=== PATIENT | female | born 1950 | race Two or more races ===

== ENCOUNTER 2016-09-26 02:51 | Inpatient (IN) | payer MEDICAID, MEDICARE ==
[~2016-09-26] VITALS: Ht 157.5 cm; Wt 43.2 kg
[2016-09-26] VITALS (29 sets, daily range): BP systolic 86–160; BP diastolic 44–84
--- NOTE | 2016-09-26 03:05 | NUR ---
TO BED 6 A 66 YO FEMALE BIBRA FROM [facility] HERE FOR "HIGH BUN 90; K 6" UPON ARRIVAL TO ER, PATIENT IS ALERT, RESPONSIVE TO VERBAL AND TACTILE STIMULI, SINUS TACHY ON THE MONITOR AT 120'S, BP IS 96/61, NO SOB NOTED, BREATHING EVEN AND UNLABORED, SATTING AT 98-100% ON ROOM AIR. ONGOING CLOSE CARDIAC AND VS MONITORING. INITIATED COMFORT AND SAFETY MEASURES. DR CERDA TO AL.
--- NOTE | 2016-09-26 03:34 | NUR ---
started a saline lock on the lfa g20, blood drawn and sent to lab.
[2016-09-26 03:41] LABS: BASOPHILS % (AUTO) 0.3 % (0.0-2.0); EOSINOPHILS % (AUTO) 0.3 % (0.0-6.0); HEMATOCRIT 33 % (33-45); LYMPHOCYTES # (AUTO) 0.5 /CMM (0.8-4.8); LYMPHOCYTES % (AUTO) 3.6 % (20.0-44.0); MEAN CORPUSCULAR HEMOGLOBIN 33 PG (26.0-33.0); MEAN CORPUSCULAR HGB CONC 34 g/dl (31.0-36.0); MEAN CORPUSCULAR VOLUME 96 fL (82-100); MONOCYTES # (AUTO) 2.5 /CMM (0.1-1.30); MONOCYTES % (AUTO) 17.3 % (2.0-12.0); NEUTROPHILS # (AUTO) 11.3 /CMM (1.8-8.9); NEUTROPHILS % (AUTO) 78.5 % (43.0-81.0); PLATELET COUNT (AUTO) 253 /CMM (150-450); RDW COEFFICIENT OF VARIATION 15.6 (11.5-15.0); RED BLOOD CELL COUNT(AUTO) 3.37 MIL/uL (4.0-5.2); WHITE BLOOD COUNT (AUTO) 14.4 K/uL (4.3-11.0)
[2016-09-26] MEDS ORDERED: LORAZEPAM INJ 2 MG/ML VIAL ONE (03:44)
[2016-09-26] MEDS ORDERED: LORAZEPAM INJ 2 MG/ML VIAL IV ONE (04:00)
[2016-09-26 04:02] LABS: ALANINE AMINOTRANSFERASE 28 U/L (12-78); ALBUMIN 2.4 g/dL (3.4-5.0); ALKALINE PHOSPHATASE 202 U/L (46-116); ASPARTATE AMINOTRANSFERASE 26 U/L (15-37); BILIRUBIN,DIRECT 0.5 mg/dL (0.0-0.2); CARBON DIOXIDE 17 mmol/L (21-32); CHLORIDE 98 mmol/L (98-107); GLUCOSE 91 mg/dL (74-106); SODIUM SERUM 127 mmol/L (136-145); TOTAL PROTEIN, SERUM 7.5 g/dL (6.4-8.2)
[2016-09-26 04:03] LABS: TROPONIN I < 0.017 ng/mL (0.00-0.056)
[2016-09-26] MEDS ORDERED: ADENOSINE 6 MG/2 ML VIAL ONE ×3 (04:10→04:36)
[2016-09-26 04:11] LABS: INR 1.01 (0.87-1.13); PROTHROMBIN TIME 10.8 SECS (9.5-12.7)
--- NOTE | 2016-09-26 04:11 | NUR ---
PATIENT NOTED WITH INCREASED HR AT 160'S. DR CERDA NOTIFED, EKG DONE, RECORDED SVT, BP IS 144/60. RECEIVED ORDERS,NOTED AND CARRIED OUT.
[2016-09-26 04:15] LABS: POTASSIUM 6.6 mmol/L (3.5-5.1); UREA NITROGEN, BLOOD 119 mg/dL (7-18)
[2016-09-26] MEDS ORDERED: INSULIN REGULAR, HUMAN 100 UNIT/ML 10 ML VIAL ONE (04:17)
[2016-09-26] MEDS ORDERED: DEXTROSE 50%-WATER 50 ML DISP.SYRIN ONE (04:17)
[2016-09-26] MEDS ORDERED: CALCIUM CHLORIDE 1,000 MG/10 ML DISP.SYRIN ONE (04:18)
[2016-09-26] MEDS ORDERED: IV NS 0.9% 1,000 ML BAG IV ONE ×2 (04:30→06:00)
[2016-09-26] MEDS ORDERED: INSULIN REGULAR, HUMAN 100 UNIT/ML 10 ML VIAL IV ONE (04:30)
[2016-09-26] MEDS ORDERED: FUROSEMIDE 40 MG/4 ML VIAL IV ONE (04:30)
[2016-09-26] MEDS ORDERED: ALBUTEROL FS 2.5 MG/3 ML VIAL.NEB NEB ONE (04:30)
[2016-09-26] MEDS ORDERED: DEXTROSE 50%-WATER 50 ML DISP.SYRIN IV ONE (04:30)
[2016-09-26] MEDS ORDERED: CALCIUM CHLORIDE 1,000 MG/10 ML DISP.SYRIN IV ONE (04:30)
[2016-09-26] MEDS ORDERED: SODIUM BICARBONATE SYR 50 MEQ/50 ML DISP.SYRIN IV ONE (04:30)
[2016-09-26] MEDS ORDERED: ADENOSINE 6 MG/2 ML VIAL IVP ONE ×2 (04:30)
[2016-09-26] MEDS ORDERED: ALBUTEROL FS 2.5 MG/3 ML VIAL.NEB ONE (04:32)
--- NOTE | 2016-09-26 04:40 | NUR ---
MEDICATED PATIENT PER DR CERDA AT BEDSIDE, PLACED PATIENT ON PADS, EKG AT BEDSIDE, CLOSE CARDIAC AND VS MONITORING ONGOING. PATIENT IS RESPONSIVE TO TACTILE STIMULI.
[2016-09-26] MEDS ORDERED: AMIODARONE 150 MG/3 ML VIAL IV ONE ×4 (04:43→05:00)
--- NOTE | 2016-09-26 05:02 | NUR ---
AMIODARONE LOADING DONE COMPLETED, STARTED AMIO DRIP AT THIS TIME AT 1MG/MIN AND WILL TITRATE PER PROTOCOL.
--- NOTE | 2016-09-26 05:10 | NUR ---
dr ellison paged per dr mariscal.
[2016-09-26] MEDS ORDERED: FUROSEMIDE 20 MG/2 ML VIAL ONE (05:22)
[2016-09-26 05:29] LABS: BAND % (MANUAL) 1 % (0.0-5.0); LYMPHOCYTES % (MANUAL) 4 % (16-48); MONOCYTES % (MANUAL) 3 % (0-11.0); NEUTROPHILS % (MANUAL) 92 (42-76)
[2016-09-26] MEDS ORDERED: NA P133E RC (05:36)
[2016-09-26] MEDS ORDERED: HYDR-552 PO (05:36)
[2016-09-26] MEDS ORDERED: CYCL5TAB PO (05:36)
[2016-09-26] MEDS ORDERED: MIRT15TA PO (05:36)
[2016-09-26] MEDS ORDERED: MEGE400O PO (05:36)
[2016-09-26] MEDS ORDERED: BUSP10TA3 PO (05:36)
[2016-09-26] MEDS ORDERED: MONT10TA22 PO (05:36)
[2016-09-26] MEDS ORDERED: BISA-79 PO (05:36)
[2016-09-26] MEDS ORDERED: ASCO500C16 PO (05:36)
[2016-09-26] MEDS ORDERED: FERR-58 PO (05:36)
[2016-09-26] MEDS ORDERED: OMEG300C3 PO (05:36)
[2016-09-26] MEDS ORDERED: MAGN400O4 PO (05:36)
[2016-09-26] MEDS ORDERED: FOLI1TAB16 PO (05:36)
[2016-09-26] MEDS ORDERED: ACET-868 PO (05:36)
--- NOTE | 2016-09-26 05:45 | NUR ---
STARTED A SALINE LOCK ON THE MID ABDOMEN G22, GOOD BLOOD BACK FLOW NOTED, FLUSHED WITH EASE.
--- NOTE | 2016-09-26 06:10 | NUR ---
Report given to Tommy JAQUEZ for marni.
--- NOTE | 2016-09-26 06:25 | NUR ---
Transferred to ICU 252 via als protocol, no incident noted. Tommy JAQUEZ at bedside.
--- NOTE | 2016-09-26 06:30 | NUR ---
FELTING MACHINE OPERATOR HELPER; ADMISSION NOTE: RECEIVED PT FROM ER AT 0620, ADMITTED UNDER DR GRAYSON, DX SEPSIS, UT AND SVT, PT IS AAO X 1-2, CONFUSED, ON 2L NASAL CANNULA SATURATING 96%, RUNNING AMIODARONE DRIP AT 1 MG/MIN STARTED BY ER NURSE/NO AT 0500 AM. NS 2ND BOLUS ONGOING. PAGED DR GRAYSON FOR ADMISSION ORDERS. ALL ADMISSION ASSESSMENT DONE, DEEP REDNESS ON SACRUM/COCCYX, BILATERAL HEELS REDNESS. WOUND ACRE CONSULT TRIGGED. KCI MATTRESS ORDERED. WILL ENDORSE CARE TO NEXT SHIFT.
[2016-09-26] MEDS ORDERED: IV D5/ 0.9% NACL 1,000 ML IV PRN (07:00)
--- NOTE | 2016-09-26 07:17 | NUR ---
AREA COORDINATOR: SPOKE WITH DR GRAYSON, ADMISSION ORDERS RECEIVED, ADMITTED IN ICU, PLAN FOR CHEM 7 AND LACTIC ACID LEVEL WILL BE AT 0800 AM,. MD SAID WILL BE COMING IN 30 MINT. BEDSIDE REPORT GIVEN TO JOB/RN, MADE AWARE ALL ORDERS, ENDORSED ABOUT [facility] TO DOSE, AND D5NS AT 100 ML/HR.
[2016-09-26] MEDS: AMIODARONE 900 MG in IV D5W 482 ML IV PRN ×2 (08:13→15:29)
[2016-09-26] MEDS: PIPERACILLIN /TAZOBACTAM 2.25 G in IV D5W 50 ML IV SCH ×3 (08:14→17:44)
--- NOTE | 2016-09-26 09:00 | NUR ---
DR. MCNULTY ON THE UNIT TO DANNY PT. REPORTED NEWEST POTASSIUM LEVEL AT 5.5, HE ORDERS TO HAVE FOLLOW UP BMP AT 1300 NO OTHER INTERVENTIONS AT THIS TIME, PLACES THE ORDER IN [employer] HIMSELF. ALSO DISCUSSED WITH HIM, WHETHER TO START DIET OR NOT. HE ORDERS THAT WE CAN ADVANCE MUCH SHE CAN TOLERATE LONG SHE IS AWAKE. AT THIS TIME SHE IS DROWSY AND IT IS OKAY TO HOLD PO MEDICATIONS UNTIL SHE IS MORE ALERT.
[2016-09-26 09:18] LABS: ALBUMIN 1.9 g/dL (3.4-5.0); BILIRUBIN,TOTAL 1.1 mg/dL (0.2-1.0); CALCIUM, SERUM 9.2 mg/dL (8.5-10.1); CREATININE 2.8 mg/dL (0.6-1.3); POTASSIUM 5.5 mmol/L (3.5-5.1); TOTAL PROTEIN, SERUM 6.2 g/dL (6.4-8.2)
[2016-09-26 10:43] LABS: URINE TOTAL PROTEIN 125.4 mg/dL (0-11.9)
[2016-09-26] MEDS: IV NS 0.9% 1,000 ML IV PRN ×2 (10:49→23:33)
[2016-09-26 11:03] LABS: APPEARANCE,URINE CLOUDY (CLEAR); BILIRUBIN,URINE NEGATIVE (NEGATIVE); BLOOD, URINE 2+ Ery/uL (NEGATIVE); COLOR,URINE YELLOW (YELLOW); KETONES,URINE NEGATIVE (NEGATIVE); LEUKOCYTE ESTERASE ,URINE 3+ (NEGATIVE); NITRITE, URINE NEGATIVE (NEGATIVE); PROTEIN,URINE 1+ mg/dl (NEGATIVE); UGLUCOSE NEGATIVE (NEGATIVE); UROBILINOGEN,URINE 0.2 EU/dL (0.2)
[2016-09-26 11:06] LABS: BACTERIA,URINE Few /HPF (None Seen); SQUAMOUS EPITHELIAL CELL,UR Few /HPF (None Seen); WBC,URINE TOO NUMEROUS TO COUN /HPF (0-3)
[2016-09-26] MEDS ORDERED: VITAMINS A AND D 56.7 GM TUBE TP PRN (11:30)
[2016-09-26 12:22] LABS: EOSINOPHIL,URINE None Seen
[2016-09-26] MEDS: BLOOD SUGAR DIAGNOSTIC 1 EACH STRIP IN SCH ×3 (12:27→21:08)
[2016-09-26] MEDS ORDERED: Z GUARD REMEDY 2 OZ OINT TP PRN (12:30)
--- NOTE | 2016-09-26 12:40 | NUR ---
WOUND CARE CONSULT: RONAL SCORE NOTED TO BE 11. ALL SKIN PROTECTION MEASURES IN PLACE AND DISCUSSED WITH NURSING STAFF. FIRST STEP MATTRESS ORDERED AND TO BE PLACED TODAY. PT TO BE TURNED AND REPOSITIONED EVERY 2 HRS PT CONDITION PERMITS, HEELS FLOATED. Z GUARD ORDERED. PT SEEN BY SURGICAL TEAM. DEFER TO SURGICAL TEAM FOR WOUND TREATMENT PLAN. WILL SEE PRN. IN AGREEMENT WITH PLAN OF CARE.
[2016-09-26 12:46] LABS: ALBUMIN 1.9 g/dL (3.4-5.0); BILIRUBIN,TOTAL 1.3 mg/dL (0.2-1.0); CALCIUM, SERUM 9.1 mg/dL (8.5-10.1); CREATININE 2.7 mg/dL (0.6-1.3)
--- NOTE | 2016-09-26 12:55 | NUR ---
DR. CAI ORDERS ULTRASOUND FOR ABDOMEN (INCLUDING KIDNEYS) ORDERS TO KEEP THE PT NPO FOR THIS PROCEDURE. AWARE OF [facility] LAB[facility], BUN TRENDING DOWN BUT STILL CRITICAL HIGH, POTASSIUM NOW TRENDED DOWN TO 5.0, PT MAKING URINE OVER 1 LITER SINCE 0700 THIS MORNING.
[2016-09-26] MEDS: Z GUARD REMEDY 2 OZ OINT TP SCH (12:57)
[2016-09-26] MEDS: MORPHINE SULFATE INJ 2 MG/ML DISP.SYRIN IV PRN ×2 (15:31→20:21)
[2016-09-26] MEDS: busPIRone 5 MG TABLET PO SCH (16:31)
--- NOTE | 2016-09-26 16:31 | NUR ---
CALLED [facility] AND SPOKE WITH THE CHARGE NURSE AT STATION 4 HE STATES THE PT WAS ON MECHANICAL SOFT DIET.
--- NOTE | 2016-09-26 19:58 | NUR ---
CREATIVE SERVICES INTERN: RECEIVED PT FROM DAY SHIFT, PT IS AAO X 1-2, VERY CONFUSED, AGITATING, HAVING OCCASIONALLY HALLUCINATION, ON PSYCHOTROPIC MEDS. ON 2 L NC SATURATING 98%, NOT IN DISTRESS. ON AMIODARONE DRIP AT 0.5 MG/MIN WILL BE DONE AROUND 0500 AM.SINUS RHYTHM ON MONITOR RATE OF 90-130. NS AT 100 ML/HR. NEWLY INSERTED MIDLINE ON LEFT UPPER ARM #20 WITH GOOD BLOOD RETURNS. FROST CATH TO GRAVITY. AFEBRILE, ONGOING MONITORING...
[2016-09-26] MEDS: FAMOTIDINE/PF INJ 20 MG/2 ML VIAL IV SCH (20:20)
[2016-09-26] MEDS: MONTELUKAST SODIUM (10MG) 10 MG TABLET PO SCH (21:08)
[2016-09-26] MEDS: MIRTAZAPINE 15 MG TABLET PO SCH (21:08)
[2016-09-26 21:57] LABS: CREATININE, URINE 17.2 MG/DL (30.0-125.0)
[2016-09-27] VITALS (28 sets, daily range): BP systolic 88–138; BP diastolic 51–86
[2016-09-27] MEDS: PIPERACILLIN /TAZOBACTAM 2.25 G in IV D5W 50 ML IV SCH ×4 (00:15→21:27)
[2016-09-27] MEDS: BLOOD SUGAR DIAGNOSTIC 1 EACH STRIP IN SCH ×6 (00:59→21:19)
[2016-09-27 04:58] LABS: BASOPHILS # (AUTO) 0.1 /CMM (0.0-0.2); BASOPHILS % (AUTO) 0.4 % (0.0-2.0); EOSINOPHILS # (AUTO) 0.2 /CMM (0.0-0.7); EOSINOPHILS % (AUTO) 1.3 % (0.0-6.0); HEMATOCRIT 27 % (33-45); HEMOGLOBIN 9.1 g/dL (11.5-14.8); LYMPHOCYTES # (AUTO) 0.7 /CMM (0.8-4.8); LYMPHOCYTES % (AUTO) 4.7 % (20.0-44.0); MEAN CORPUSCULAR HEMOGLOBIN 33 PG (26.0-33.0); MEAN CORPUSCULAR HGB CONC 34 g/dl (31.0-36.0); MEAN CORPUSCULAR VOLUME 97 fL (82-100); MONOCYTES # (AUTO) 0.6 /CMM (0.1-1.30); MONOCYTES % (AUTO) 4.3 % (2.0-12.0); NEUTROPHILS # (AUTO) 12.5 /CMM (1.8-8.9); NEUTROPHILS % (AUTO) 89.3 % (43.0-81.0); PLATELET COUNT (AUTO) 228 /CMM (150-450); RDW COEFFICIENT OF VARIATION 15.3 (11.5-15.0); RED BLOOD CELL COUNT(AUTO) 2.75 MIL/uL (4.0-5.2)
[2016-09-27 05:50] LABS: BILIRUBIN,TOTAL 1.3 mg/dL (0.2-1.0); CALCIUM, SERUM 8.8 mg/dL (8.5-10.1); CREATININE 2.3 mg/dL (0.6-1.3); MAGNESIUM 2.2 mg/dL (1.8-2.4); PHOSPHORUS 4.8 mg/dL (2.5-4.9); POTASSIUM 4.5 mmol/L (3.5-5.1); TOTAL PROTEIN, SERUM 6.5 g/dL (6.4-8.2)
[2016-09-27] MEDS ORDERED: SODIUM BICARBONATE SYR 50 MEQ/50 ML DISP.SYRIN IV ONE (08:24)
[2016-09-27] MEDS: busPIRone 5 MG TABLET PO SCH ×2 (08:46→16:18)
[2016-09-27] MEDS: FERROUS SULFATE (325 MG) 325 MG/TAB TABLET PO SCH (08:46)
[2016-09-27] MEDS: ASCORBIC ACID 500 MG TABLET PO SCH (08:46)
[2016-09-27] MEDS: FOLIC ACID 1 MG TABLET PO SCH (08:46)
[2016-09-27] MEDS: MEGESTROL ACETATE SUSP 400 MG/10 ML UDC PO SCH ×2 (08:46→16:17)
[2016-09-27] MEDS: FAMOTIDINE/PF INJ 20 MG/2 ML VIAL IV SCH ×2 (08:46→21:19)
[2016-09-27] MEDS: Z GUARD REMEDY 2 OZ OINT TP SCH (08:47)
[2016-09-27] MEDS ORDERED: Medication Not On Formulary EA (Omega-3 Fatty Acids (Fish Oil) 300 MG) PO SCH (09:00)
--- NOTE | 2016-09-27 09:15 | NUR ---
CV/CVN CV TSC SYSTEM OPERATOR- Pt from SNF. MRSA swab was not ordered/done. MRSA swab collected & sent to lab. Will continue to monitor.
[2016-09-27] MEDS: IV NS 0.9% 1,000 ML IV PRN ×2 (09:17→21:20)
[2016-09-27] MEDS: AMIODARONE HCL 200 MG TABLET PO SCH (09:23)
--- NOTE | 2016-09-27 17:35 | NUR ---
ETL BI DEVELOPER- Report given to Ami JAQUEZ. 1750- Pt transferred to Tele Room 325-1. No belongings present on admission.
--- NOTE | 2016-09-27 18:00 | NUR ---
MS RN NOTES RECEIVED PATIENT IN BED RESTING NO SOB OR ACUTE DISTRESS NOTED. PATIENT ALERT, ORIENTED X1 CONFUSED. MALDIVIAN SPEAKING. VS WNL. BED IN LOW LOCKED POSITION. CALL LIGHT WITHIN REACH WILL CONTINUE TO MONITOR.
--- NOTE | 2016-09-27 19:15 | NUR ---
MS RN NOTES PATIENT IN BED RESTING NO SOB OR ACUTE DISTRESS NOTED. ALL DUE MEDICATIONS ADMINISTERED. ALL NEEDS MET. WILL ENDORSE TO PM SHIFT KEN.
--- NOTE | 2016-09-27 19:30 | NUR ---
NO BAKE MOLDER OPENING NOTES: PATIENT IN BED, AOX1, CONFUSED. ON ROOM AIR, BREATHING EVEN AND UNLABORED. BREATH SOUNDS CLEAR TO AUSCULTATION. APPEARS CALM AND IN NO DISTRESS. ARMANDO MIDLINE INTACT, INFUSING WELL WITH NS RUNNING AT 100 ML/HR. ON COREEN ISOFLEX MATTRESS. HOB MAINTAINED ELEVATED. PROVIDED FOR COMFORT AND SAFETY. BED IN LOWEST AND LOCKED POSITION, SIDERAILS UP X3. WILL CONT TO MONITOR.
[2016-09-27] MEDS: MIRTAZAPINE 15 MG TABLET PO SCH (21:53)
[2016-09-27] MEDS: MONTELUKAST SODIUM (10MG) 10 MG TABLET PO SCH (21:53)
[2016-09-28] VITALS (10 sets, daily range): BP systolic 110–153; BP diastolic 70–78
[2016-09-28] MEDS: BLOOD SUGAR DIAGNOSTIC 1 EACH STRIP IN SCH ×6 (00:55→21:10)
--- NOTE | 2016-09-28 01:00 | NUR ---
RN NOTES: PATIENT'S BLOOD SUGAR IS 79. GAVE SNACK OF PUDDING AND ORANGE JUICE. PATIENT ABLE TO TOLERATE SNACK. ON ASPIRATION PRECAUTIONS.
[2016-09-28] MEDS: PIPERACILLIN /TAZOBACTAM 2.25 G in IV D5W 50 ML IV SCH ×2 (05:03→12:37)
--- NOTE | 2016-09-28 05:09 | NUR ---
RN NOTES: PATIENT'S BLOOD SUGAR IS 89 MG/DL, NO INSULIN COVERAGE INDICATED AT THIS TIME.
--- NOTE | 2016-09-28 06:43 | NUR ---
GANG PUSHER CLOSING NOTES: PATIENT IN BED, AOX1, CONFUSED, ON ROOM AIR, BREATHING EVEN AND UNLABORED. BREATH OSUNDS CLEAR TO AUSCULTATION. ON TELE MONITORING WITH SINUS RHYTHM AT RATE OF 80S-90S THROUGH SHIFT. ARMANDO MIDLINE INTACT AND INFUSING WELL WITH NS RUNNING AT 100 ML/HR. DUE MEDS GIVEN. PROVIDED FOR COMFORT AND SAFETY. TURNED AND REPOSITIONED PATIENT IN BED. CONTINUED CURRENT WOUND TREATMENT. FROST CATHETER IN PLACE DRAINING CLEAR YELLOW URINE. NO ACUTE CHANGE IN CONDITION NOTED THROUGH SHIFT. PROVIDED FOR COMFORT AND SAFETY. BED IN LOWEST AND LOCKED POSITION, SIDERAILS UP X3. WILL ENDORSE TO AM RN FOR KEN.
[2016-09-28 06:45] LABS: CALCIUM, SERUM 8.6 mg/dL (8.5-10.1); CREATININE 1.7 mg/dL (0.6-1.3); MAGNESIUM 1.8 mg/dL (1.8-2.4); PHOSPHORUS 4.4 mg/dL (2.5-4.9); POTASSIUM 4.5 mmol/L (3.5-5.1)
--- NOTE | 2016-09-28 07:42 | NUR ---
MS/RN OPENING NOTE PATIENT RECEIVED IN BED IN STABLE CONDITION. NO SIGNS OF ACUTE DISTRESS. RESPIRATIONS EVEN AND UNLABORED, ON ROOM AIR. ALERT AND ORIENTED TIMES 1. DENIES PAIN OR DISCOMFORT AT THIS TIME. ALL NEEDS ATTENDED TO. CALL LIGHT IN REACH. WILL CONTINUE TO MONITOR TO ENSURE SAFETY.
[2016-09-28 07:44] LABS: BASOPHILS % (AUTO) 0.3 % (0.0-2.0); EOSINOPHILS # (AUTO) 0.2 /CMM (0.0-0.7); EOSINOPHILS % (AUTO) 1.8 % (0.0-6.0); HEMATOCRIT 29 % (33-45); HEMOGLOBIN 9.6 g/dL (11.5-14.8); LYMPHOCYTES # (AUTO) 0.9 /CMM (0.8-4.8); LYMPHOCYTES % (AUTO) 7.5 % (20.0-44.0); MEAN CORPUSCULAR HEMOGLOBIN 32 PG (26.0-33.0); MEAN CORPUSCULAR HGB CONC 33 g/dl (31.0-36.0); MEAN CORPUSCULAR VOLUME 99 fL (82-100); MONOCYTES # (AUTO) 0.4 /CMM (0.1-1.30); MONOCYTES % (AUTO) 3.7 % (2.0-12.0); NEUTROPHILS # (AUTO) 10.1 /CMM (1.8-8.9); NEUTROPHILS % (AUTO) 86.7 % (43.0-81.0); PLATELET COUNT (AUTO) 280 /CMM (150-450); RDW COEFFICIENT OF VARIATION 15.5 (11.5-15.0); RED BLOOD CELL COUNT(AUTO) 2.99 MIL/uL (4.0-5.2); WHITE BLOOD COUNT (AUTO) 11.6 K/uL (4.3-11.0)
[2016-09-28] MEDS: AMIODARONE HCL 200 MG TABLET PO SCH (08:45)
[2016-09-28] MEDS: FAMOTIDINE/PF INJ 20 MG/2 ML VIAL IV SCH ×2 (08:46→20:27)
[2016-09-28] MEDS: FERROUS SULFATE (325 MG) 325 MG/TAB TABLET PO SCH (08:46)
[2016-09-28] MEDS: FOLIC ACID 1 MG TABLET PO SCH (08:46)
[2016-09-28] MEDS: ASCORBIC ACID 500 MG TABLET PO SCH (08:46)
[2016-09-28] MEDS: busPIRone 5 MG TABLET PO SCH ×2 (08:46→17:34)
[2016-09-28] MEDS: IV NS 0.9% 1,000 ML IV PRN (09:08)
[2016-09-28] MEDS: Z GUARD REMEDY 2 OZ OINT TP SCH (09:17)
[2016-09-28] MEDS: MEGESTROL ACETATE SUSP 400 MG/10 ML UDC PO SCH ×2 (09:35→17:33)
[2016-09-28 12:15] LABS: ALBUMIN 2.1 g/dL (3.4-5.0); BILIRUBIN,DIRECT 0.4 mg/dL (0.0-0.2); BILIRUBIN,TOTAL 0.9 mg/dL (0.2-1.0); TOTAL PROTEIN, SERUM 6.8 g/dL (6.4-8.2)
[2016-09-28] MEDS ORDERED: METO25TA20 PO (14:48)
[2016-09-28] MEDS ORDERED: CEFA1PIG IV (14:48)
--- NOTE | 2016-09-28 15:24 | NUR ---
MS/RN SEEN BY CRISTIAN SEEN BY DR JUÁREZ STRUCTURAL STEEL WORKER HELPER WITH OK TO DISCHARGE
--- NOTE | 2016-09-28 15:45 | NUR ---
MS/RN S/B Marleen Vale Seen by RELIGIOUS EDUCATION TEACHER - patient ready to be discharged back to facility today. Needs to continue with with ancef IV for a further four days.
--- NOTE | 2016-09-28 16:00 | NUR ---
MS/RN F/C REMOVE F/C REMOVED. PATIENT TOLERATED WELL. MONITORING FOR PATIENT TO VOID SECONDARY TO S/P F/C REMOVAL.
--- NOTE | 2016-09-28 16:36 | NUR ---
MS/RN Report Report given to Flor at [facility].
--- NOTE | 2016-09-28 17:56 | NUR ---
MS/RN CLOSING NOTE PATIENT IN STABLE CONDITION. ABLE TO MAKE NEEDS KNOWN. S/P F/C REMOVAL MONITOR. STILL AWAITING FOR PATIENT TO VOID. AFTER VOID PATIENT WILL BE DISCHARGED TO [facility]. NO COMPLAIN OF PAIN AND DISCOMFORT. NO ACUTE DISTRESS. WILL CONTINUE TO MONITOR AND WILL ENDORSE TO ENTRY SPECIALISTS TO ENSURE SAFETY AND CONTINUITY OF CARE.
--- NOTE | 2016-09-28 19:30 | NUR ---
MSRN FULLY AWAKE, DIAPER DRY, NO URINE OUTPUT YET. NO NEEDS FOR NOW. TO CONTINUE,
[2016-09-28] MEDS: CEFAZOLIN 1 GM in IV D5W 50 ML IV SCH (20:26)
--- NOTE | 2016-09-28 20:44 | NUR ---
MSRN CHECKED FOR URINE OUTPUT, STATED SHE DID BUT HER DIAPER WAS DRY. NEED TO MONITOR CLOSELY IF PATIENT VOIDED. POSSIBLE DISCHARGE TONIGHT ONCE PATIENT VOIDS. BLADDER NON DISTENDED OF THIS TIME. DUE MEDS ADMINISTERED. ANCEF ON PROGRESS VIA LEFT UPPER ARM MIDLINE.REMAINS PLEASANTLY CONFUSED.
[2016-09-28] MEDS ORDERED: METOPROLOL TARTRATE 25 MG TABLET PO SCH (21:00)
[2016-09-28] MEDS: MIRTAZAPINE 15 MG TABLET PO SCH (21:10)
[2016-09-28] MEDS: MONTELUKAST SODIUM (10MG) 10 MG TABLET PO SCH (21:10)
--- NOTE | 2016-09-28 21:35 | NUR ---
MSRN BS WAS 126, NO COVERAGE. OTHER DUE MEDS ADMINISTERED.
--- NOTE | 2016-09-28 21:45 | NUR ---
MSRN VERBALIZES LOWER ABD PAIN, BLADDER DISTENDED, BLADDER SCAN REVEALS [address] CALL TO MD.
--- NOTE | 2016-09-28 21:50 | NUR ---
MSGISELE RECEIVED CALL FROM [facility], STATED CAN TAKE PATIENT IN THE MORNING INSTEAD, PER DENNISE. INFORMED PATIENT HAS URINARY RETENTION AND NEED TO CALL MD.
--- NOTE | 2016-09-28 22:10 | NUR ---
MSRNorma INFORMED RETORT ENGINEER GABY REGARDING URINARY RETENTION, ORDERS RECEIVED. WILL REPLACE FROST AND TO CALL [facility] IF THEY ACCEPT PATIENT WITH FROST, OTHERWISE OVERNIGHT STAY AND DISCHARGE PATIENT IN AM WITH FROST AND UROLOGY OUTPATIENT..
--- NOTE | 2016-09-28 22:15 | NUR ---
MSGISELE PLACED CALL TO [facility], WAS PLACED ON HOLD FOR AWHILE.
--- NOTE | 2016-09-28 22:20 | NUR ---
MSGISELE PLACED ANOTHER CALL TO [facility], SPOKE TO DENNISE, STATED THEY CAN ACCEPT PATIENT WITH FROST AND CAN TAKE PATIENT IN THE MORNING. INFORMED CN.
--- NOTE | 2016-09-28 23:00 | NUR ---
MSRN REINSERTED FROST FR 16 WITH GOOD CLEAR URINE BACKFLOW. OBTAINED 700 CC. REPOSITIONED FOR COMFORT.
[2016-09-29] MEDS: BLOOD SUGAR DIAGNOSTIC 1 EACH STRIP IN SCH ×2 (01:00→05:28)
[2016-09-29] MEDS: IV NS 0.9% 1,000 ML IV PRN (02:44)
--- NOTE | 2016-09-29 05:00 | NUR ---
MSRN PLACED CALL TO [facility], WILL CONCHE LOADER AND UNLOADER PATIENT AT 0730. PLACED CALL TO [facility] FOR REPORT, NO ANSWER.
--- NOTE | 2016-09-29 05:24 | NUR ---
MSRN PLACED ANOTHER CALL TO [facility], NO ANSWER.
[2016-09-29] MEDS: CEFAZOLIN 1 GM in IV D5W 50 ML IV SCH (05:28)
--- NOTE | 2016-09-29 05:51 | NUR ---
MSRN BED BATHED, DISIMPACTED HAD LARGE HARD STOOLS. FELT BETTER THIS TIME. TOTAL URINE OUTPUT WAS 1300 CLEAR YELLOW URINE. PLACED CALL TO [facility] STILL NOBODY ANSWERING.
--- NOTE | 2016-09-29 06:07 | NUR ---
MSRN RECEIVED CALL FROM [facility] WILL BE HERE IN 30 TO 45 MINS. PLACED 4TH CALL TO [facility] STILL NOBODY ANSWERING THE PHONE.
--- NOTE | 2016-09-29 06:14 | NUR ---
MSGISELE PLACED ANOTHER CALL TO [facility] SPOKE TO [facility] THIS TIME, GAVE UPDATE REPORT. PATIENT WILL BE DISCHARGE WITH FROST CATHETER AND LEFT UPPER ARM MIDLINE. PATIENT HAS NO BELONGINGS. AWAITING FOR AMBULANCE.
--- NOTE | 2016-09-29 06:56 | NUR ---
MSRN ADDITIONAL 550 OUT FROM [facility]. AMBULANCE ARRIVED. UPDATED REPORT.
--- NOTE | 2016-09-29 07:07 | NUR ---
MSRN LEFT VIA AMBULANCE TO [facility]. NO BELONGINGS. PATIENT IN SATISFACTORY CONDITION.
== END 2016-09-29 07:00 | DRG 470 ==
LOC: ER 02:53 → ICU 05:34 → MED 09-27 17:44 → TELE 09-27 22:24 → MED 09-28 10:50
PROVIDERS: ADMIT Internal Medicine Nephrology; ATTEND Internal Medicine Nephrology
PROC: 05H633Z Insertion of Infusion Device into Left Subclavian Vein, Percutaneous Approach (ICD-10-PCS; principal; 2016-09-26)
DX: I12.0 Hypertensive chronic kidney disease with stage 5 chronic kidney disease or end stage renal disease (principal); N17.0 Acute kidney failure with tubular necrosis; G93.41 Metabolic encephalopathy; L89.159 Pressure ulcer of sacral region, unspecified stage; E44.0 Moderate protein-calorie malnutrition; N18.6 End stage renal disease; F03.90 Unspecified dementia, unspecified severity, without behavioral disturbance, psychotic disturbance, mood disturbance, and anxiety; I47.1 Supraventricular tachycardia; E87.1 Hypo-osmolality and hyponatremia; I48.92 Unspecified atrial flutter; E87.5 Hyperkalemia; N39.0 Urinary tract infection, site not specified; F41.9 Anxiety disorder, unspecified; F32.9 Major depressive disorder, single episode, unspecified; D63.8 Anemia in other chronic diseases classified elsewhere; B96.20 Unspecified Escherichia coli [E. coli] as the cause of diseases classified elsewhere; E66.01 Morbid (severe) obesity due to excess calories; M06.9 Rheumatoid arthritis, unspecified; Z68.1 Body mass index [BMI] 19.9 or less, adult; L89.621 Pressure ulcer of left heel, stage 1; L89.611 Pressure ulcer of right heel, stage 1; D72.829 Elevated white blood cell count, unspecified
CPT/HCPCS: 36415; 71010-TC; 76700-TC; 80048-TC; 80053-TC; 80076-TC; 81000-TC; 82550-TC; 82570-TC; 82728-TC; 82962-TC; 83540-TC; 83605-TC; 83735-TC; 84100-TC; 84155-TC; 84300-TC; 84484-TC; 85025-TC; 85730-TC; 87081-TC; 87086-TC; 87186-TC; 93307-TC; A4606; C1769; J0153; J0282; J0690; J1815; J1940; J2060; J2270; J2543; J3490; J7030; J7042; J7060; Z7610

== ENCOUNTER 2016-12-10 17:52 | Inpatient (IN) | payer MEDICARE, MEDICAID ==
[~2016-12-10] VITALS: Ht 160 cm; Wt 42.8 kg
[~2016-12-10 17:52] MED LIST: ACET-868 PO; ASCO500C16 PO; BISA-79 PO; BUSP10TA3 PO; CEFA1PIG IV; CYCL5TAB PO; FERR-58 PO; FOLI1TAB16 PO; HYDR-552 PO; MAGN400O4 PO; MEGE400O PO; METO25TA20 PO; MIRT15TA PO; MONT10TA22 PO; NA P133E RC; OMEG300C3 PO
--- NOTE | 2016-12-10 17:54 | NUR ---
PT BIBRA FROM SNF TO ER BED 09. PER REPORT, PT IS MORE ALTERED AT 1600, PT NOTED TO BE DESATTING. ON NON REBREATHER STORAGE BRINE WORKER. GOWNED AND PLACED ON MONITOR. TACHYCARDIC STORAGE BRINE WORKER. AWAITING MD DELGADO.
--- NOTE | 2016-12-10 18:04 | NUR ---
DR SAVAGE AT BEDSIDE FOR EVAL.
[2016-12-10] MEDS ORDERED: IV NS 0.9% 1,000 ML BAG IV ONE (18:30)
--- NOTE | 2016-12-10 18:57 | NUR ---
RADIOLOGY AT BEDSIDE FOR CHEST XRAY.
--- NOTE | 2016-12-10 18:58 | NUR ---
PT TO RADIOLOGY FOR HEAD CT SCAN VIA [facility].
[2016-12-10] MEDS ORDERED: MULT-213 PO (19:05)
[2016-12-10 19:30] LABS: TROPONIN I 0.227 ng/mL (0.00-0.056)
[2016-12-10] MEDS ORDERED: LEVOFLOXACIN 750 MG /D5W 150ML 150 ML IV ONE ×2 (19:30→19:42)
[2016-12-10] MEDS ORDERED: VANCOMYCIN 1 GM in IV D5W 250 ML IV ONE (19:30)
[2016-12-10] MEDS ORDERED: CEFTRIAXONE 1GM BAG (ER ONLY) 50 ML IV ONE ×2 (19:30→19:41)
[2016-12-10 19:36] LABS: EOSINOPHILS # (AUTO) 0.1 /CMM (0.0-0.7); EOSINOPHILS % (AUTO) 0.2 % (0.0-6.0); HEMATOCRIT 26 % (33-45); HEMOGLOBIN 8.3 g/dL (11.5-14.8); LYMPHOCYTES # (AUTO) 1.6 /CMM (0.8-4.8); LYMPHOCYTES % (AUTO) 6.4 % (20.0-44.0); MEAN CORPUSCULAR HEMOGLOBIN 32 PG (26.0-33.0); MEAN CORPUSCULAR HGB CONC 32 g/dl (31.0-36.0); MEAN CORPUSCULAR VOLUME 100 fL (82-100); MONOCYTES # (AUTO) 0.3 /CMM (0.1-1.30); MONOCYTES % (AUTO) 1.3 % (2.0-12.0); NEUTROPHILS % (AUTO) 92.1 % (43.0-81.0); PLATELET COUNT (AUTO) 408 /CMM (150-450); RDW COEFFICIENT OF VARIATION 15.6 (11.5-15.0); RED BLOOD CELL COUNT(AUTO) 2.64 MIL/uL (4.0-5.2)
[2016-12-10 19:37] LABS: ALBUMIN 2.2 g/dL (3.4-5.0); BILIRUBIN,DIRECT 0.2 mg/dL (0.0-0.2); BILIRUBIN,TOTAL 0.5 mg/dL (0.2-1.0); CALCIUM, SERUM 11.8 mg/dL (8.5-10.1); CREATININE 2.7 mg/dL (0.6-1.3); POTASSIUM 4.2 mmol/L (3.5-5.1); TOTAL PROTEIN, SERUM 8.8 g/dL (6.4-8.2)
[2016-12-10] MEDS ORDERED: ASPIRIN 300 MG/SUPP.RECT RC ONE ×2 (20:00→20:20)
[2016-12-10 20:03] LABS: BAND % (MANUAL) 16 % (0.0-5.0); EOSINOPHILS % (MANUAL) 2 % (0-4); LYMPHOCYTES % (MANUAL) 8 % (16-48); NEUTROPHILS % (MANUAL) 74 (42-76)
--- NOTE | 2016-12-10 20:14 | NUR ---
CALLED [facility], SENIOR DESIGNER/ART DIRECTOR WAS PAGED.
[2016-12-10 20:19] LABS: INR 1.03 (0.87-1.13); PROTHROMBIN TIME 10.7 SECS (9.5-12.7)
[2016-12-10 20:27] LABS: APPEARANCE,URINE CLOUDY (CLEAR); BILIRUBIN,URINE NEGATIVE (NEGATIVE); BLOOD, URINE 3+ Ery/uL (NEGATIVE); COLOR,URINE YELLOW (YELLOW); KETONES,URINE NEGATIVE (NEGATIVE); LEUKOCYTE ESTERASE ,URINE 3+ (NEGATIVE); NITRITE, URINE POSITIVE (NEGATIVE); PROTEIN,URINE 2+ mg/dl (NEGATIVE); UGLUCOSE NEGATIVE (NEGATIVE)
[2016-12-10 20:38] LABS: BACTERIA,URINE Few /HPF (None Seen); SQUAMOUS EPITHELIAL CELL,UR Few /HPF (None Seen); WBC,URINE 21-50 /HPF (0-3)
--- NOTE | 2016-12-10 20:46 | NUR ---
CARLEE 119-1
--- NOTE | 2016-12-10 20:50 | NUR ---
SPOKE WITH DR. UNDERWOOD. WAS INFORMED TO SEND PT TO FLOOR SO HE CAN PLACE ORDERS.
[2016-12-10 21:00] VITALS: BP 96/43
--- NOTE | 2016-12-10 21:15 | NUR ---
RN:TELE: PT RECEIVED FROM ED FOR PNA. PT NOTED TO HAVE LABORED BREATHING AND O2 SAT 87% ON 3 LITERS NC. PT PLACED ON 10 LITERS SIMPLE MASK. STAT ABG ORDERED DUE TO RESPIRATORY DISTRESS. PER MD ORDERS CALLED RENAL MD FOR ADMITTING ORDERS. PER PT CHART PT IS FULL CODE.
[2016-12-10] MEDS ORDERED: methylPREDNISolone SOD SUCC 40 MG/ML VIAL ONE (21:32)
[2016-12-10] MEDS ORDERED: ALBUTEROL FS 2.5 MG/0.5 ML VIAL.NEB ONE (21:33)
[2016-12-10] MEDS ORDERED: IPRATROPIUM NEB FS 0.5 MG/2.5 ML AMPUL.NEB ONE (21:33)
[2016-12-10 21:40] VITALS: BP 73/36
[2016-12-10] MEDS ORDERED: ALBUTEROL FS 2.5 MG/3 ML VIAL.NEB ONE (21:40)
--- NOTE | 2016-12-10 21:40 | NUR ---
RN NOTES PATIENT WITH NEW ORDERS. MEDICATION OVERRIDE PERFORMED, NO PHARMACY AT THIS TIME. ALSO RECEIVED CALL FROM [facility] REGARDING SEVERE SEPSIS FOLLOW UP, SPOKE TO GILSON. PER GILSON 278 ML MORE OF FLUIDS NEED TO BE BOLUSED AND 2 BP READINGS AFTER THAT. PRIMARY NURSE MADE AWARE
[2016-12-10] MEDS: methylPREDNISolone SOD SUCC 125 MG/2ML VIAL IV SCH (21:42)
[2016-12-10] MEDS: IV D5/ 0.9% NACL 1,000 ML IV PRN (21:42)
[2016-12-10] MEDS: IPRATROPIUM NEB FS 0.5 MG/2.5 ML AMPUL.NEB NEB SCH (22:04)
[2016-12-10] MEDS: ALBUTEROL FS 2.5 MG/3 ML VIAL.NEB NEB SCH (22:04)
--- NOTE | 2016-12-10 22:05 | NUR ---
RN:TD: ABG RESULTS REPORTED TO MD. MD MADE AWARE OF CODE STATUS, BP 70'S AND POOR IV ACCESS. NEW ORDERS TO PLACE PT ON BIPAP, ADMIN 500 ML NS BOLUS. MD REQUESTED TO HAVE PT PLACED ON HCO3 GTT BUT PER NURSING LOGGING EQUIPMENT MECHANIC BICARB IS NOT AVAILABLE. ORDERS TO REPEAT ABG IN 1 HOUR AND CALL MD. WILL CONTINUE TO MONITOR CLOSELY.
--- NOTE | 2016-12-10 22:07 | NUR ---
pt placed on bipap per md order post abg results. pt placed on s/t 12 30/06 100% Addendum: 12/10/16 at 2208 by DERRELL DANIEL RT Amended: Links added.
[2016-12-10 22:13] VITALS: BP 81/51
[2016-12-10] MEDS ORDERED: IV NS 0.9% 500 ML IV ONE (22:30)
[2016-12-10 23:00] VITALS: BP 82/51
[2016-12-10 23:15] VITALS: BP 96/64
[2016-12-10 23:35] LABS: ABG BASE EXCESS -17.6 mmol/L; ABG OXYGEN SATURATION 93.3 % (92.0-98.5); ABG PCO2 57.8 mmHg (35.0-45.0); ABG PH 6.976 (7.350-7.450); ABG PO2 87.8 mmHg (75.0-100.0); AaDO2 276.4 mmHg; COHb 0.8 % (0.5-1.5); O2Hb 91.6 % (94.0-97.0); SITE, ABG Left Brachial; VENT MODE, BG 10L SIMPLE MASK
[2016-12-10 23:36] LABS: ABG BASE EXCESS -18.4 mmol/L; ABG OXYGEN SATURATION 98.6 % (92.0-98.5); ABG PCO2 52.5 mmHg (35.0-45.0); ABG PH 6.981 (7.350-7.450); ABG PO2 247.3 mmHg (75.0-100.0); AaDO2 413.2 mmHg; COHb 0.1 % (0.5-1.5); MetHb 1.1 % (0.0-1.5); O2Hb 97.4 % (94.0-97.0); PEEP,BG 5 cm H2O; SITE, ABG Right Brachial; VENT MODE, BG S/T 12 20/5 100%
--- NOTE | 2016-12-10 23:54 | NUR ---
RN:TD: ABG RESULTS AND BP READING 80'S. NEW ORDERS FOR PT TO BE TRANSFERRED TO ICU, WITH LEVO GTT. ONCOMING NURSE TO CALL PULMONARY REGARDING BIPAP CHANGES AND ABG RESULTS.
[2016-12-11] VITALS (102 sets, daily range): BP systolic 58–207; BP diastolic 14–173
--- NOTE | 2016-12-11 00:27 | NUR ---
RN:TD: PT TRANSFERRED TO ICU ROOM 258, BEDSIDE REPORT GIVEN. ERIN OWENS TO CALL PULMONARY FOR BIPAP MANAGEMENT. Addendum: 12/11/16 at 0033 by AMY WHITE RN MESSAGE LEFT FOR FAMILY REGARDING CHANGE IN PT CONDITION. PENDING RESPONSE.
--- NOTE | 2016-12-11 00:30 | NUR ---
ASSISTANT TEACHER PRIMARY - NOTES - RECEIVED PT IN BED, OPENS EYES, DOES NOT FOLLOW COMMANDS, ABLE TO MOVE BUE, BOTH HANDS ARE DEFORMED AND STUCK IN ONE POSITION, LOOKS LIKE CRIPPLING ARTHRITIS. PT IS ON BIPAP, 20/5 R 12 100%, ABG IS BAD, PH LOW 6.981, WILL NOTIFY PELEG FOR BIPAP SETTINGS. PT IS IN ST UP TO 120S, BP MARGINAL. PT IS NPO, PT HAS F/C WITH LOW URINE OUTPUT. SACRAL STAGE 2, LEFT HAND WOUND WITH WHITE PUS?. PT HAS 20G R EJ IV, ON D5NS @ 100 ML/HR. WILL CONTINUE TO MONITOR
[2016-12-11] MEDS ORDERED: IPRATROPIUM NEB FS 0.5 MG/2.5 ML AMPUL.NEB ONE ×2 (00:50→03:42)
[2016-12-11] MEDS ORDERED: ALBUTEROL FS 2.5 MG/3 ML VIAL.NEB ONE ×2 (00:50→03:43)
[2016-12-11] MEDS: ALBUTEROL FS 2.5 MG/3 ML VIAL.NEB NEB SCH ×7 (00:51→23:31)
[2016-12-11] MEDS: IPRATROPIUM NEB FS 0.5 MG/2.5 ML AMPUL.NEB NEB SCH ×7 (00:51→23:31)
--- NOTE | 2016-12-11 02:50 | NUR ---
rn:td: orders from md to give one amp of hco3 if available, per nursing tellers supervisor dana only bicarb is located in crash cart. per simone crash cart will be opening in icu to admin hco3. order placed.
[2016-12-11] MEDS ORDERED: SODIUM BICARBONATE SYR 50 MEQ/50 ML DISP.SYRIN IV ONE ×2 (03:00→03:20)
--- NOTE | 2016-12-11 03:10 | NUR ---
DR PEREIRA CALLED REGARDING CRITICAL ABG RESULTS, HE SAID THE PATIENT NEEDS TO BE INTUBATED, BUT THE PATIENT IS DNI, PT IS ON BIPAP, DR PEREIRA ORDERED BIPAP SETTING CHANGES
--- NOTE | 2016-12-11 03:23 | NUR ---
IPAP CHANGED TO 25, RATE TO [address] PEREIRA.
[2016-12-11 04:49] LABS: BASOPHILS # (AUTO) 0.1 /CMM (0.0-0.2); BASOPHILS % (AUTO) 0.2 % (0.0-2.0); HEMATOCRIT 28 % (33-45); HEMOGLOBIN 8.7 g/dL (11.5-14.8); LYMPHOCYTES # (AUTO) 0.9 /CMM (0.8-4.8); LYMPHOCYTES % (AUTO) 2.6 % (20.0-44.0); MEAN CORPUSCULAR HEMOGLOBIN 31 PG (26.0-33.0); MEAN CORPUSCULAR HGB CONC 31 g/dl (31.0-36.0); MEAN CORPUSCULAR VOLUME 101 fL (82-100); MONOCYTES # (AUTO) 0.3 /CMM (0.1-1.30); MONOCYTES % (AUTO) 0.8 % (2.0-12.0); NEUTROPHILS # (AUTO) 35.1 /CMM (1.8-8.9); NEUTROPHILS % (AUTO) 96.4 % (43.0-81.0); PLATELET COUNT (AUTO) 329 /CMM (150-450); RDW COEFFICIENT OF VARIATION 17.6 (11.5-15.0); RED BLOOD CELL COUNT(AUTO) 2.81 MIL/uL (4.0-5.2)
[2016-12-11 04:53] LABS: WHITE BLOOD COUNT (AUTO) 36.4 K/uL (4.3-11.0)
[2016-12-11 05:02] LABS: ALBUMIN 1.7 g/dL (3.4-5.0); BILIRUBIN,TOTAL 0.4 mg/dL (0.2-1.0); CALCIUM, SERUM 10.3 mg/dL (8.5-10.1); CREATININE 2.5 mg/dL (0.6-1.3); PHOSPHORUS 5.4 mg/dL (2.5-4.9); POTASSIUM 4.2 mmol/L (3.5-5.1); TOTAL PROTEIN, SERUM 7.5 g/dL (6.4-8.2)
[2016-12-11 05:12] LABS: BAND % (MANUAL) 20 % (0.0-5.0); LYMPHOCYTES % (MANUAL) 6 % (16-48); MONOCYTES % (MANUAL) 2 % (0-11.0); NEUTROPHILS % (MANUAL) 72 (42-76)
[2016-12-11] MEDS ORDERED: methylPREDNISolone SOD SUCC 125 MG/2ML VIAL ONE (06:07)
[2016-12-11] MEDS: methylPREDNISolone SOD SUCC 125 MG/2ML VIAL IV SCH ×3 (06:09→22:22)
--- NOTE | 2016-12-11 06:30 | NUR ---
FI02 LOWERED TO 80%
--- NOTE | 2016-12-11 07:10 | NUR ---
RN INITIAL NOTES RECEIVED PT AWAKE, NON-VERBAL. ON BIPAP. HOB ELEVATED. NO RESPIRATORY DISTRESS NOTED. NO SOB NOTED. NO SIGNS OF PAIN NOTED. IV LINE IN PLACE. ON IVF: D5NS AT 100ML/HR. FC IN PLACE. WILL MONITOR FOR OUTPUT. PT REPOSITIONED. BLE ELEVATED. WILL MONITOR.
[2016-12-11] MEDS: IV D5/ 0.9% NACL 1,000 ML IV PRN (07:21)
--- NOTE | 2016-12-11 08:40 | NUR ---
RN NOTES SEEN AND EXAMINED BY DR. PACHECO. AWARE OF PT'S STATUS, CURRENT LAB VALUES AND CXR RESULT. PT ON BIPAP. ON IVF. ORDERED LABS IN AM.
--- NOTE | 2016-12-11 09:00 | NUR ---
RN NOTES SEEN AND EXAMINED BY DR CAI. AWARE OF LAB VALUES: WBC 36.4, HGB 8.7, HCT 28, PLATELET 329. NO SIGNS OF ACTIVE BLEEDING NOTED. SODIUM 148, BUN 74, CREA 2.5. ALSO AWARE OF CXR RESULT. MD ORDERED LABS IN AM, STOOL FOR OB. NOTED AND CARRIED OUT. WILL CONTINUE TO MONITOR.
[2016-12-11] MEDS ORDERED: FEE PK DOSING 1 MIN EA MC ONE (09:23)
[2016-12-11 09:24] LABS: ABG BASE EXCESS -15.1 mmol/L; ABG OXYGEN SATURATION 98.7 % (92.0-98.5); ABG PCO2 30.4 mmHg (35.0-45.0); ABG PH 7.199 (7.350-7.450); ABG PO2 223.1 mmHg (75.0-100.0); AaDO2 315.4 mmHg; COHb 0.3 % (0.5-1.5); MetHb 1.2 % (0.0-1.5); O2Hb 97.2 % (94.0-97.0); SITE, ABG Right Brachial
--- NOTE | 2016-12-11 09:25 | NUR ---
RN NOTES SEEN AND EXAMINED BY DR. PEREIRA. AWARE OF PT'S STATUS, CURRENT LAB VALUES AND IMAGING RESULT. PT ON BIPAP. ABG DONE AND RESULT RELAYED TO HIM. NO CHANGES MADE.
[2016-12-11] MEDS: PANTOPRAZOLE 40 MG VIAL IV SCH (09:50)
--- NOTE | 2016-12-11 10:00 | NUR ---
RN NOTES CALLED BRENDA (DTR) # [phone] FOR TELEPHONE CONSENT FOR US GUIDED THORACENTESIS ORDERED BY DR. PEREIRA. LEFT A MESSAGE. AWAITING CALL BACK.
[2016-12-11 10:01] LABS: CHOLESTEROL 40 mg/dL (<200); LDL 15 mg/dL (0-99); THYROID STIMULATING HORMONE 1.456 uIU/mL (0.358-3.74); TRIGLYCERIDES 37 mg/dL (30-150)
[2016-12-11 10:04] LABS: HDL CHOLESTEROL < 10 mg/dL (40-60)
[2016-12-11 16:31] LABS: APPEARANCE,URINE CLOUDY (CLEAR); BILIRUBIN,URINE NEGATIVE (NEGATIVE); BLOOD, URINE 3+ Ery/uL (NEGATIVE); COLOR,URINE YELLOW (YELLOW); KETONES,URINE NEGATIVE (NEGATIVE); LEUKOCYTE ESTERASE ,URINE 3+ (NEGATIVE); NITRITE, URINE POSITIVE (NEGATIVE); PROTEIN,URINE 2+ mg/dl (NEGATIVE); UGLUCOSE NEGATIVE (NEGATIVE); UROBILINOGEN,URINE 0.2 EU/dL (0.2)
[2016-12-11 16:46] LABS: BACTERIA,URINE Few /HPF (None Seen); SQUAMOUS EPITHELIAL CELL,UR Few /HPF (None Seen); WBC,URINE 51-80 /HPF (0-3)
[2016-12-11 16:57] LABS: CREATININE, URINE 20.6 MG/DL (30.0-125.0)
--- NOTE | 2016-12-11 17:10 | NUR ---
RN NOTES CALLED DR. CAI REGARDING PT'S HR. HR BET 120-140S, SINUS TACHYCARDIA. PT ON NPO. SBP ON LOW 90S. MD ORDERED NS 500ML AT 50ML/HR X1. NOTED AND CARRIED OUT. WILL CLOSELY MONITOR.
[2016-12-11] MEDS ORDERED: IV NS 0.9% 500 ML IV ONE (17:30)
[2016-12-11 18:01] LABS: EOSINOPHIL,URINE None Seen
[2016-12-11] MEDS: NOREPINEPHRINE 8 MG in IV D5W 500 ML IV PRN (18:07)
--- NOTE | 2016-12-11 18:44 | NUR ---
RN CLOSING NOTES PT REMAINS ON BIPAP. NO RESPIRATORY DISTRESS NOTED. NO SOB NOTED. NO SIGNS OF PAIN NOTED. KEPT HOB ELEVATED. MIDLINE IN PLACE. NS AT 50ML/HR INFUSING. STARTED ON LEVO AT 1MCG/MIN. CURRENT SBP ON LOW 100S. FC IN PLACE. TX PROVIDED ORDERED. KEPT CLEAN AND DRY. REPOSITIONED Q2. KEPT BLE ELEVATED. WILL ENDORSE FOR CONTINUITY OF CARE.
[2016-12-11] MEDS ORDERED: CEFTRIAXONE 1 G in IV D5W 50 ML IV SCH (20:00)
[2016-12-11] MEDS: VANCOMYCIN 500 MG in IV D5W 100 ML IV SCH (20:11)
--- NOTE | 2016-12-11 20:30 | NUR ---
SYSTEMS ENG - ASSUMED PT. CARE FROM GRACIELA JAQUEZ. PT. IS NONVERBAL, OPENS EYES SPONT. PT. REMAINS ON BIPAP I:E: 25/5,RATE-18 & 80% FIO2. CRACKLES & RHONCHI AUSC. O2 SATS ARE WNL. HEART MONITOR SHOWS VERY LABILE SBP'S FROM 60'S TO 200'S SYS - TOLIC. PT.REMAINS ON LEVOPHED GTT. AT ONE MCG/MIN. PULSE/LOW 100'S TO TEENS. FROST CATH TO GRAVITY-OLIGURIC. ALL PULSES PALPABLE X 4 EXT. BUT WEAK. AFEBRILE. SACRAL STAGE II. ALL FINGERS AND TOES ARE SEVERLY DEFORMED. CONT. POC.
[2016-12-11] MEDS ORDERED: LEVOFLOXACIN 500 MG /D5W 100ML 500 MG in PREMIX 1 EA IV SCH (21:00)
[2016-12-12] VITALS (91 sets, daily range): BP systolic 65–174; BP diastolic 24–130
--- NOTE | 2016-12-12 | NUR ---
AUTO DISMANTLER - NO CHANGES FROM INITIAL ASSESSMENT. RT AT BS READJUSTING BIPAP MASK, PT.CAN PULL ON BIPAP TUBING & DIS - CONNECT AIR TUBING/W/LEFT HAND. PT. MOVES LUE, MORE THAN RT. MINIMAL UOP VIA FROST. LEVO REMAINS AT ONE MCG/MIN. CONT. POC.
[2016-12-12] MEDS: IPRATROPIUM NEB FS 0.5 MG/2.5 ML AMPUL.NEB NEB SCH ×6 (03:22→23:16)
[2016-12-12] MEDS: ALBUTEROL FS 2.5 MG/3 ML VIAL.NEB NEB SCH ×6 (03:23→23:16)
[2016-12-12 04:59] LABS: ALANINE AMINOTRANSFERASE 14 U/L (12-78); ALBUMIN 1.6 g/dL (3.4-5.0); ALKALINE PHOSPHATASE 98 U/L (46-116); ASPARTATE AMINOTRANSFERASE 27 U/L (15-37); BILIRUBIN,TOTAL 0.3 mg/dL (0.2-1.0); CALCIUM, SERUM 10.1 mg/dL (8.5-10.1); CARBON DIOXIDE 13 mmol/L (21-32); CREATININE 2.5 mg/dL (0.6-1.3); GLUCOSE 136 mg/dL (74-106); PHOSPHORUS 4.3 mg/dL (2.5-4.9); POTASSIUM 3.3 mmol/L (3.5-5.1); TOTAL PROTEIN, SERUM 6.4 g/dL (6.4-8.2); UREA NITROGEN, BLOOD 79 mg/dL (7-18)
[2016-12-12 05:05] LABS: TROPONIN I < 0.017 ng/mL (0.00-0.056)
[2016-12-12 05:32] LABS: CREATINE KINASE, TOTAL 99 U/L (26-192); FERRITIN 4267 ng/mL (8-388); PREALBUMIN 7.3 MG/DL (18.0-35.7)
[2016-12-12] MEDS: methylPREDNISolone SOD SUCC 125 MG/2ML VIAL IV SCH ×3 (05:52→21:31)
[2016-12-12 06:06] LABS: CHLORIDE 126 mmol/L (98-107); IRON, SERUM 17 ug/dl (50-175); SODIUM SERUM 156 mmol/L (136-145); TOTAL IRON BINDING CAPACITY 50 ug/dl (250-450)
[2016-12-12 07:27] LABS: HEMATOCRIT 22 % (33-45); LYMPHOCYTES # (AUTO) 0.8 /CMM (0.8-4.8); LYMPHOCYTES % (AUTO) 3.3 % (20.0-44.0); MEAN CORPUSCULAR HEMOGLOBIN 31 PG (26.0-33.0); MEAN CORPUSCULAR HGB CONC 32 g/dl (31.0-36.0); MEAN CORPUSCULAR VOLUME 99 fL (82-100); MONOCYTES # (AUTO) 0.2 /CMM (0.1-1.30); MONOCYTES % (AUTO) 0.9 % (2.0-12.0); NEUTROPHILS # (AUTO) 24.1 /CMM (1.8-8.9); NEUTROPHILS % (AUTO) 95.8 % (43.0-81.0); PLATELET COUNT (AUTO) 320 /CMM (150-450); RDW COEFFICIENT OF VARIATION 17.9 (11.5-15.0); RED BLOOD CELL COUNT(AUTO) 2.22 MIL/uL (4.0-5.2); WHITE BLOOD COUNT (AUTO) 25.1 K/uL (4.3-11.0)
--- NOTE | 2016-12-12 07:30 | NUR ---
CLAM SHOVEL OPERATOR RECEIVED PATIENT ASLEEP, LETHARGIC WHEN AWAKE ON CONTINOUS BIPAP WITH SATURATION OF BETWEEN 95-98 UNABLE TO CHECK ORIENTATION AFEBRILE BLOOD PRESSURE AT THE LOW SIE, MAINTAINED ON LEVOPHED AT 1 MCG MONITORED CLOSELY FROST CATHETER DRAINING TO YELLOWISH URINE OUTPUT SMALL IN AMOUNT
[2016-12-12 07:41] LABS: HEMOGLOBIN 6.9 g/dL (11.5-14.8)
[2016-12-12] MEDS: PANTOPRAZOLE 40 MG VIAL IV SCH (08:09)
[2016-12-12] MEDS: POTASSIUM CL. PREMIX PERIPHER. 50 ML IV SCH ×4 (08:27→11:22)
[2016-12-12 08:29] LABS: BAND % (MANUAL) 5 % (0.0-5.0); EOSINOPHILS % (MANUAL) 1 % (0-4); LYMPHOCYTES % (MANUAL) 4 % (16-48); MONOCYTES % (MANUAL) 2 % (0-11.0); NEUTROPHILS % (MANUAL) 88 (42-76)
--- NOTE | 2016-12-12 08:30 | NUR ---
ADDICTIONS COUNSELOR ASSISTANT SEEN AND EXAMINED BY DR. MUÑOZ WITH NEW ORDERED MADE AND CARRIED OUT 6.9 HGB RESULT WAS INFORMED TO SHE ORDERED TO TRANSFUSE 1 UNIT
[2016-12-12] MEDS ORDERED: ACETAMINOPHEN 650 MG/20.3 ML UDC NG PRN (09:00)
[2016-12-12] MEDS ORDERED: ONDANSETRON HCL/PF 4 MG/2 ML VIAL IV PRN (09:00)
[2016-12-12 09:05] LABS: ABG BASE EXCESS -14.7 mmol/L; ABG OXYGEN SATURATION 98.3 % (92.0-98.5); ABG PCO2 23.7 mmHg (35.0-45.0); ABG PH 7.275 (7.350-7.450); ABG PO2 178.1 mmHg (75.0-100.0); AaDO2 79.8 mmHg; COHb 0.3 % (0.5-1.5); MetHb 0.8 % (0.0-1.5); O2Hb 97.2 % (94.0-97.0); SITE, ABG Right Brachial
[2016-12-12] MEDS: IV 1/2NS 1000 ML 1,000 ML IV PRN (09:05)
--- NOTE | 2016-12-12 10:54 | NUR ---
WOUND CARE CONSULT WOUND CARE WILL DEFER TREATMENT OF SACRAL DTI IN EVOLUTION TO SURGICAL TEAM AT THIS TIME. PATIENT WITH RONAL AT 11. CONTINUE TURNING SCHED Q 2 HOURS AND BILATERAL HEEL FLOATING. PATIENT PRESENTS WITH SEVERELY DRY SKIN TO BILATERAL LOWER LEGS AND FEET. RECOMMEND VITAMIN A+D OINTMENT DAILY FOR MANAGEMENT OF DRY SKIN. RECOMMEND Z GUARD FOR SKIN/MOISTURE MANAGEMENT TO PERINEAL AND BUTTOCKS REGIONS. PATIENT CURRENT ON TRACI ISOFLEX LOW AIRLOSS MATTRESS. ALL SKIN MANAGEMENT DISCUSSED WITH NURSING AT THE BEDSIDE. PATIENT CURRENTLY ON BIPAP, RECOMMEND CONTINUED USE OF MEPILEX FOAM UNDER THE BIPAP MASK AND BRIDGE OF NOSE FOR PROTECTION DISCUSSED WITH RT AT THE BEDSIDE.
[2016-12-12] MEDS ORDERED: Z GUARD REMEDY 2 OZ OINT TP PRN (11:00)
[2016-12-12 11:15] LABS: HEMOGLOBIN 7.1 g/dL (11.5-14.8)
[2016-12-12] MEDS: Z GUARD REMEDY 2 OZ OINT TP SCH (13:00)
[2016-12-12] MEDS: VITAMINS A AND D 56.7 GM TUBE TP SCH (13:10)
[2016-12-12] MEDS: NOREPINEPHRINE 8 MG in IV D5W 500 ML IV PRN (17:04)
[2016-12-12] MEDS: MEROPENEM 500 MG in IV NS 0.9% 50 ML IV SCH (18:21)
--- NOTE | 2016-12-12 19:30 | NUR ---
GERONTOLOGY AIDE: RECEIVED PT AWAKE, ABLE TO FOLLOW SIMPLE COMMANDS AT TIMES. ON BIPAP MACHINE AND TOLERATING SETTINGS ORDERED. NO ACUTE DISTRESS. NO EVIDENCE OF DISCOMFORT. ST ON LAST TURNER. STILL OFF LEVOPHED. AFEBRILE. F/C PATENT AND INTACT DRAINING SMALL AMT. OF LINDSAY COLORED URINE. SAFETY PRECAUTION NOTED. WILL CONTINUE TO MONITOR.
--- NOTE | 2016-12-12 20:00 | NUR ---
ICU: F/C DRAINING LARGE AMT. OF CLOUDY PINK-TINGED URINE WHEN REPOSITIONED. WILL CONTINUE TO MONITOR.
[2016-12-12] MEDS: VANCOMYCIN 500 MG in IV D5W 100 ML IV SCH (20:46)
[2016-12-12] MEDS ORDERED: LEVOFLOXACIN 500 MG /D5W 100ML 500 MG in PREMIX 1 EA IV SCH (21:00)
[2016-12-13] VITALS (36 sets, daily range): BP systolic 81–148; BP diastolic 27–84
--- NOTE | 2016-12-13 00:30 | NUR ---
PAPER ROLL MACHINE OPERATOR: STILL OFF LEVOPHED. TOLERATING BIPAP SETTINGS ORDERED. NO ACUTE DISTRESS, NO EVIDENCE OF DISCOMFORT.
[2016-12-13] MEDS: IV 1/2NS 1000 ML 1,000 ML IV PRN ×2 (02:04→15:18)
[2016-12-13] MEDS: IPRATROPIUM NEB FS 0.5 MG/2.5 ML AMPUL.NEB NEB SCH ×6 (03:47→23:10)
[2016-12-13] MEDS: ALBUTEROL FS 2.5 MG/3 ML VIAL.NEB NEB SCH ×6 (03:47→23:10)
--- NOTE | 2016-12-13 04:30 | NUR ---
PULP PLANT SUPERVISOR: BED BATH GIVEN AND TOLERATED FAIRLY. STOOL SPECIMEN #1 FOR O.B. COLLECTED.
[2016-12-13 05:18] LABS: HEMATOCRIT 24 % (33-45); HEMOGLOBIN 7.9 g/dL (11.5-14.8); LYMPHOCYTES # (AUTO) 0.6 /CMM (0.8-4.8); LYMPHOCYTES % (AUTO) 2.2 % (20.0-44.0); MEAN CORPUSCULAR HEMOGLOBIN 31 PG (26.0-33.0); MEAN CORPUSCULAR HGB CONC 32 g/dl (31.0-36.0); MEAN CORPUSCULAR VOLUME 96 fL (82-100); MONOCYTES # (AUTO) 0.3 /CMM (0.1-1.30); NEUTROPHILS # (AUTO) 24.5 /CMM (1.8-8.9); NEUTROPHILS % (AUTO) 96.8 % (43.0-81.0); PLATELET COUNT (AUTO) 236 /CMM (150-450); RDW COEFFICIENT OF VARIATION 18.7 (11.5-15.0); RED BLOOD CELL COUNT(AUTO) 2.55 MIL/uL (4.0-5.2); WHITE BLOOD COUNT (AUTO) 25.4 K/uL (4.3-11.0)
[2016-12-13 05:26] LABS: CREATININE 2.8 mg/dL (0.6-1.3); MAGNESIUM 2.1 mg/dL (1.8-2.4); PHOSPHORUS 5.4 mg/dL (2.5-4.9); POTASSIUM 4.4 mmol/L (3.5-5.1)
[2016-12-13] MEDS: methylPREDNISolone SOD SUCC 125 MG/2ML VIAL IV SCH ×3 (05:32→22:15)
[2016-12-13] MEDS: MEROPENEM 500 MG in IV NS 0.9% 50 ML IV SCH ×2 (05:34→17:35)
[2016-12-13 05:40] LABS: BAND % (MANUAL) 5 % (0.0-5.0); LYMPHOCYTES % (MANUAL) 4 % (16-48); MONOCYTES % (MANUAL) 2 % (0-11.0); NEUTROPHILS % (MANUAL) 89 (42-76)
--- NOTE | 2016-12-13 05:52 | NUR ---
SHADING PAINTER: RECEIVED LAB RESULT [id number] FROM 126 AND [id number] FROM 79. NO SIGNIFICANT KEN DURING THE SHIFT. TOLERATING BIPAP SETTINGS ORDERED WT NO ACUTE DISTRESS. STILL OFF LEVOPHED. REMAINED ST WT HR IN THE 120s. AFEBRILE. TOLERATING IVF WT NO S/S OF INFILTRATION ON JEREMY MIDLINE. F/C REMAINED PATENT, INTACT AND DRAINING WELL WHEN REPOSITIONED ON THE SIDE WITH CLOUDY LINDSAY TO PINK-TINGED URINE. WILL ENDORSE TO DAY SHIFT TO FF-UP WT MD FOR ABNORMAL LAB RESULTS. OLIVER CHARGE NURSE MADE AWARE.
--- NOTE | 2016-12-13 08:10 | NUR ---
INITIAL MOBILE PATROL OFFICER NOTE RCVD PT SLEEPING SHOWING NO S/O DISTRESS/PAIN AT THIS TIME, TOLERATING BIPAP WELL. ST ON TELE. FROST DRAINING CLOUDY, PINK TINGED URINE WITH CLOTS, IV ACCESSES C/D/I/PATENT. NO S/O INFILTRATION/PHLEBITIS OBSERVED UPON FLUSHING. IVF INFUSING. WILL CONTINUE TO MONITOR PT FOR SAFETY AND COMFORT. CALL LIGHT WITHIN REACH. BED IN LOW AND LOCKED POSITION.
[2016-12-13] MEDS: VITAMINS A AND D 56.7 GM TUBE TP SCH (08:17)
[2016-12-13] MEDS: Z GUARD REMEDY 2 OZ OINT TP SCH (08:17)
[2016-12-13] MEDS: PANTOPRAZOLE 40 MG VIAL IV SCH (08:18)
[2016-12-13 09:05] LABS: ABG BASE EXCESS -17.4 mmol/L; ABG OXYGEN SATURATION 97.8 % (92.0-98.5); ABG PCO2 19.4 mmHg (35.0-45.0); ABG PH 7.242 (7.350-7.450); ABG PO2 146.8 mmHg (75.0-100.0); AaDO2 116.1 mmHg; COHb 0.3 % (0.5-1.5); MetHb 1.2 % (0.0-1.5); O2Hb 96.3 % (94.0-97.0); SITE, ABG Right Radial
--- NOTE | 2016-12-13 09:20 | NUR ---
CONTRACTING OFFICER NOTE DR. PEREIRA IN UNIT INFORMED OF PT'S BLOOD GAS RESULTS, AGREES WITH RT TO DECREASE FIO2 TO 30%. WILL CONTINUE TO MONITOR.
--- NOTE | 2016-12-13 09:35 | NUR ---
DRENCHER NOTE PER DR. PEREIRA TRIAL OFF BIPAP. RT CALLED IN BIPAP OFF. PT ON 4L VIA NC. VITAL SIGNS REMAIN STABLE. ABG TO BE RE-ASSESSED IN ONE HR. WILL CONTINUE TO MONITOR.
[2016-12-13 10:53] LABS: ABG BASE EXCESS -17.9 mmol/L; ABG OXYGEN SATURATION 97.6 % (92.0-98.5); ABG PCO2 18.8 mmHg (35.0-45.0); ABG PH 7.233 (7.350-7.450); ABG PO2 138.3 mmHg (75.0-100.0); AaDO2 96.6 mmHg; COHb 0.2 % (0.5-1.5); MetHb 1.1 % (0.0-1.5); O2Hb 96.3 % (94.0-97.0); SITE, ABG Right Radial; VENT MODE, BG 4L NC
--- NOTE | 2016-12-13 11:03 | NUR ---
COMMUNICATION EQUIPMENT MECHANIC NOTE 1030 ABG DONE AND REVIEWED BY DR. PEREIRA. RECOMMENDS TO CONTINUE OFF BIPAP AND REPEAT ABG AT 1400. RT INFORMED. WILL CONTINUE TO MONITOR. VITAL SIGNS REMAIN STABLE. PT SHOWING NO S/O DISTRESS.
[2016-12-13 11:11] LABS: *SPE A/G RATIO 0.6 (0.7-1.7); *SPE ALPHA-1-GLOBULIN 0.4 g/dL (0.0-0.4); *SPE ALPHA-2-GLOBULIN 0.9 g/dL (0.4-1.0); *SPE BETA GLOBULIN 0.6 g/dL (0.7-1.3); *SPE GLOBULIN, TOTAL 3.5 g/dL (2.2-3.9); *SPE M-SPIKE Not Observed g/dL (Not Observed); *SPE PROTEIN TOTAL 5.5 g/dL (6.0-8.5); *SPEGAMMA GLOBULIN 1.6 g/dL (0.4-1.8)
--- NOTE | 2016-12-13 12:11 | NUR ---
NAVY SEAL NOTE DR. MUÑOZ IN UNIT AWARE OF PT'S MORNING LABS AND WORSENING OF RENAL FUNCTION, RECOMMENDED TO POSSIBLY CHANGE IVF OR INCREASE THEM. INFORMED THAT PT HAS BEEN NPO SINCE ADMISSION RECOMMENDED SWALLOW EVAL CONSULT, THIS WAS ORDERED. SHE WAS ALSO INFORMED OF PT'S ABG RESULTS METABOLIC ACIDOSIS. NO NEW ORDERS RCVD.
[2016-12-13 12:16] LABS: PTH, INTACT 21 pg/mL (15-65)
[2016-12-13 14:19] LABS: ABG BASE EXCESS -17.4 mmol/L; ABG OXYGEN SATURATION 96.9 % (92.0-98.5); ABG PCO2 20.2 mmHg (35.0-45.0); ABG PH 7.233 (7.350-7.450); ABG PO2 106.8 mmHg (75.0-100.0); COHb 0.3 % (0.5-1.5); MetHb 1.1 % (0.0-1.5); O2Hb 95.5 % (94.0-97.0); SITE, ABG Right Radial; VENT MODE, BG NASAL CANNULA
--- NOTE | 2016-12-13 14:19 | NUR ---
GYMNASTIC COACH NOTE 1400 ABG DONE AND RESULTS REVIEWED BY DR. PEREIRA. PT REMAINS STABLE WILL CONTINUE WITH O2 VIA NC. PT TOLERATING WELL AT THIS TIME. WILL CONTINUE TO MONITOR.
--- NOTE | 2016-12-13 18:00 | NUR ---
DOCUMENT CLERK NOTE PT REMAINS STABLE, SHOWING NO S/O DISTRESS OR PAIN OBSERVED. PT RESPONDS TO NAME, PT HAS BEEN ORIENTED TO PLACE, SITUATION, TIME THROUGHOUT THE SHIFT. TOLERATING O2 VIA NC. ST ON TELE. FROST TO GRAVITY DRAINING CLOUDY, YELLOW URINE. IV ACCESSES REMAIN C/D/I/PATENT. NO S/O INFILTRATION/PHLEBITIS OBSERVED UPON FLUSHING. PT'S CARE WILL BE ENDORSED TO SENIOR PRODUCTION MANAGER RN FOR CONTINUITY OF CARE AT CHANGE OF SHIFT. BED IN LOW AND LOCKED POSITION. CALL LIGHT WITHIN REACH.
[2016-12-13] MEDS: VANCOMYCIN 500 MG in IV D5W 100 ML IV SCH (20:36)
--- NOTE | 2016-12-13 21:00 | NUR ---
CALL CENTER SPECIALIST - REC'D REPORT FROM ANSHUL RN. REC'D PT. ALREADY ON RESCUE BIPAP. I:E-05/07, RATE 18 & 30%. PT. IS DNI STATUS. FROST CATH TO GRAVITY. VSS, EXCEPT PT. HAS CONSTANT ST/TEENS TO 120'S. RUE MIDLINE & RIJ 20G-PIV HAVE ALL PORTS PATENT TO FLUSH. 0.45 % NS INFUSING AT 100CC/HR VIA WIGGINS PUMP. PT'S HANDS & FEET ARE DEFORMED DUE TO SEVERE ARTHRITIS. PT.IS NPO. SACRAL WOUND HAS MEPILEX INTACT. CONT. POC.
[2016-12-14] VITALS (18 sets, daily range): BP systolic 94–141; BP diastolic 49–87
--- NOTE | 2016-12-14 02:00 | NUR ---
STAGING TECHNICIAN - COMPLETE BEDBATH ADM. W/ORAL,YVROSE & WOUND/SKIN CARE GIVEN. CONT. POC.
[2016-12-14] MEDS: ALBUTEROL FS 2.5 MG/3 ML VIAL.NEB NEB SCH ×2 (03:49→07:49)
[2016-12-14] MEDS: IPRATROPIUM NEB FS 0.5 MG/2.5 ML AMPUL.NEB NEB SCH ×2 (03:49→07:49)
[2016-12-14] MEDS: IV 1/2NS 1000 ML 1,000 ML IV PRN (03:53)
[2016-12-14 04:43] LABS: HEMATOCRIT 25 % (33-45); HEMOGLOBIN 8.2 g/dL (11.5-14.8); LYMPHOCYTES # (AUTO) 0.6 /CMM (0.8-4.8); LYMPHOCYTES % (AUTO) 2.9 % (20.0-44.0); MEAN CORPUSCULAR HEMOGLOBIN 31 PG (26.0-33.0); MEAN CORPUSCULAR HGB CONC 33 g/dl (31.0-36.0); MEAN CORPUSCULAR VOLUME 95 fL (82-100); MONOCYTES # (AUTO) 0.1 /CMM (0.1-1.30); MONOCYTES % (AUTO) 0.7 % (2.0-12.0); NEUTROPHILS # (AUTO) 19.7 /CMM (1.8-8.9); NEUTROPHILS % (AUTO) 96.4 % (43.0-81.0); PLATELET COUNT (AUTO) 202 /CMM (150-450); RDW COEFFICIENT OF VARIATION 19.9 (11.5-15.0); RED BLOOD CELL COUNT(AUTO) 2.64 MIL/uL (4.0-5.2); WHITE BLOOD COUNT (AUTO) 20.4 K/uL (4.3-11.0)
[2016-12-14 04:58] LABS: CALCIUM, SERUM 9.9 mg/dL (8.5-10.1); CREATININE 2.7 mg/dL (0.6-1.3); MAGNESIUM 2.1 mg/dL (1.8-2.4); PHOSPHORUS 5.7 mg/dL (2.5-4.9); POTASSIUM 3.8 mmol/L (3.5-5.1)
[2016-12-14 05:14] LABS: BAND % (MANUAL) 7 % (0.0-5.0); LYMPHOCYTES % (MANUAL) 5 % (16-48); MONOCYTES % (MANUAL) 3 % (0-11.0); NEUTROPHILS % (MANUAL) 85 (42-76)
[2016-12-14] MEDS: methylPREDNISolone SOD SUCC 125 MG/2ML VIAL IV SCH (06:23)
[2016-12-14] MEDS: MEROPENEM 500 MG in IV NS 0.9% 50 ML IV SCH (06:23)
--- NOTE | 2016-12-14 06:35 | NUR ---
DIAL PRINTER - DESTINY RT. REMOVED RESCUE BIPAP & PT. WAS PUT ON . NO S/S OF DISTRESS OR DISCOMFORT. VERBAL REPORT WILL BE ADDRESSED TO DAYSHIFT RN.
--- NOTE | 2016-12-14 07:30 | NUR ---
MANAGER SUMMER RECEIVED PATIENT AWAKE ON ROOM AIR 99% SATURATION MAINTAINED ON IVF WITH SEVERE DEFORMITIES OF EXTREMITIES NO FEVER FROST CATHETER DRAINING TO YELLOWISH URINE ADEQUATE IN AMOUNT
--- NOTE | 2016-12-14 09:00 | NUR ---
SUPERVISOR KENNEL PATIENT WAS SEEN BY SWALLOW ADOPTION SPECIALIST PATIENT STILL NEED TO BE WATCHED CLOSELY IF EATING IS TO BE STARTED SHE IS STILL COUGHING WHILE SWALLOW EVALUATION IS DONE
[2016-12-14] MEDS: PANTOPRAZOLE 40 MG VIAL IV SCH (09:08)
[2016-12-14] MEDS: VITAMINS A AND D 56.7 GM TUBE TP SCH (09:09)
[2016-12-14] MEDS: Z GUARD REMEDY 2 OZ OINT TP SCH (09:09)
--- NOTE | 2016-12-14 10:15 | NUR ---
BROKER IN CHARGE PATIENT SATURATION DROPPED TO 80'S THEN GOES BACK TO NORMAL WENT TO CHECK PATIENT, SHE'S LETHARGIC SATURATION CONTINUED TO DROP TO 70'S
--- NOTE | 2016-12-14 10:25 | NUR ---
AUTOMATIC DRILLER AND REAMER PATIENT IS PLACED ON BIPAP SATURATION CONTINUES TO DROP HEART RATE GOES JOYCE TO SINUS RHYTHM 60'S, BACK AND FORTH MONITORED CLOSELY
--- NOTE | 2016-12-14 10:32 | NUR ---
AUTOMOTIVE SERVICE MANAGER PATIENT BECAME UNRESPONSIVE HEART RATE WENT 30'S , PRESSURE IS VERY WEAK, CODE IS CALLED 1035 - ASYSTOLE NOTED, EPI ONE GIVEN ER MD CAME IN TO SEE PATIENT NO INTUBATION DONE SINCE SHE'S DNI 1039 HEART RATE 130'S BLOOD PRESSURE- 140'S SBP STOPPED CODE BLUE DR. COOK CALLED DAUGHTER TO INFORMED THE STATUS OF HER MOTHER THAT SHE WILL CODE AGAIN IF NOT INTUBATED PATIENT'S DAUGHTER , LEWIS LEBLANC, AGREED TO LET HER MOTHER GO DR. COOK IS TALKING TO HER 1109 DR. GRAYSON, CAME TO SEE PATIENT, PRONOUNCED HER
[2016-12-14] MEDS ORDERED: FEE EMEERGENCY 1 MIN EA MC ONE (10:52)
[2016-12-14] MEDS ORDERED: EPINEPHRINE (1:10,000) SYRINGE 1 MG/10 ML DISP.SYRIN IVP ONE (10:53)
[2016-12-14] MEDS ORDERED: HYDROMORPHONE INJ 2 MG/ML DISP.SYRIN IV PRN (11:00)
[2016-12-14] MEDS ORDERED: LORAZEPAM INJ 2 MG/ML VIAL IV PRN (11:00)
[2016-12-14 11:15] LABS: CALCITRIOL VIT D,1, 25 DIHYDRO 60.2 pg/mL (19.9-79.3)
--- NOTE | 2016-12-14 11:19 | NUR ---
AIRLINE CAPTAIN INFORMED [employer] OF THE BODY CLEANED GRANDDAUGHTER CAME IN TO SEE HER GRANDMOTHER AWAITING MORTUARY
--- NOTE | 2016-12-14 13:30 | NUR ---
CHIEF DEVELOPMENT OFFICER BROUGHT TO [facility] WITH ASSISTANCE
== END 2016-12-14 11:05 | disposition expired | DRG 720 ==
LOC: ER 17:53 → TELE1 20:49 → TELE-TD 22:33 → ICU 23:50
PROVIDERS: ADMIT Internal Medicine; ATTEND Internal Medicine
PROC: 5A09457 Assistance with Respiratory Ventilation, 24-96 Consecutive Hours, Continuous Positive Airway Pressure (ICD-10-PCS; principal; 2016-12-10)
PROC: 05H533Z Insertion of Infusion Device into Right Subclavian Vein, Percutaneous Approach (ICD-10-PCS; 2016-12-11)
PROC: 30233N1 Transfusion of Nonautologous Red Blood Cells into Peripheral Vein, Percutaneous Approach (ICD-10-PCS; 2016-12-12)
DX: A41.9 Sepsis, unspecified organism (principal); I21.4 Non-ST elevation (NSTEMI) myocardial infarction; J96.01 Acute respiratory failure with hypoxia; N17.0 Acute kidney failure with tubular necrosis; R65.21 Severe sepsis with septic shock; J96.02 Acute respiratory failure with hypercapnia; J18.9 Pneumonia, unspecified organism; J90 Pleural effusion, not elsewhere classified; G92 Toxic encephalopathy; E86.0 Dehydration; E87.0 Hyperosmolality and hypernatremia; N18.9 Chronic kidney disease, unspecified; E83.52 Hypercalcemia; E87.6 Hypokalemia; F03.90 Unspecified dementia, unspecified severity, without behavioral disturbance, psychotic disturbance, mood disturbance, and anxiety; Z79.899 Other long term (current) drug therapy; Z87.440 Personal history of urinary (tract) infections; Z66 Do not resuscitate; L89.150 Pressure ulcer of sacral region, unstageable; M06.9 Rheumatoid arthritis, unspecified; N13.9 Obstructive and reflux uropathy, unspecified; J44.9 Chronic obstructive pulmonary disease, unspecified; R74.8 Abnormal levels of other serum enzymes; I12.9 Hypertensive chronic kidney disease with stage 1 through stage 4 chronic kidney disease, or unspecified chronic kidney disease; N39.0 Urinary tract infection, site not specified; D63.1 Anemia in chronic kidney disease; B96.20 Unspecified Escherichia coli [E. coli] as the cause of diseases classified elsewhere
CPT/HCPCS: 31720; 36415; 36569; 36600; 70450-TC; 71010-TC; 76604-TC; 76770-TC; 80048-TC; 80053-TC; 80061-TC; 80076-TC; 81000-TC; 82272-TC; 82306; 82550-TC; 82570-TC; 82652; 82728-TC; 82803-TC; 82962-TC; 83540-TC; 83605-TC; 83735-TC; 83970; 84100-TC; 84134-TC; 84155; 84155-TC; 84165; 84300-TC; 84439-TC; 84443-TC; 84484-TC; 85025-TC; 85027-TC; 85730-TC; 86850-TC; 86921-TC; 87040-TC; 87081-TC; 87086-TC; 87186-TC; 92611-TC; 92950-TC; 94762-TC; A4216; A4606; A6402; C9113; J0171; J0696; J1170; J1956; J2060; J2185; J2920; J2930; J3370; J3480; J3490; J7030; J7040; J7042; J7050; J7060; P9016-BL; Z7610